=== PATIENT | female | born 1960 | race Two or more races ===

== ENCOUNTER 2018-11-26 12:43 | Inpatient (IN) | payer MEDICAID ==
[~2018-11-26] VITALS: Ht 157.5 cm; Wt 54.0 kg
[~2018-11-26 12:43] MED LIST: ACET-2178 PO; BENA20TA10 PO; GLUCO8 PO; IBUP-1636 PO; LEVO500T2 PO; SITA25TA3 PO
[2018-11-26] MEDS ORDERED: ONDANSETRON HCL 4MG/2ML INJ IV STA (19:55)
[2018-11-26] MEDS ORDERED: SODIUM CHLORIDE 0.9% 1,000 ML IV ONE (19:55)
[2018-11-26] MEDS ORDERED: FAMOTIDINE 20MG/2ML VIAL IV STA (19:55)
[2018-11-26] MEDS ORDERED: MORPHINE SULFATE 4 MG/ML CPJ (NOT FOR IM USE) IV STA (19:55)
[2018-11-26 20:53] LABS: HEMATOCRIT. 39.2 % (36.0-48.0); MEAN CORPUSCULAR HEMOGLOBIN 36.4 pg (28.0-32.0); MEAN CORPUSCULAR VOLUME 110.2 fL (81.0-99.0); MEAN PLATELET VOLUME 10.6 fl (7.4-10.4); PLATELET 104 x1000/uL (130-400); RED BLOOD CELL COUNT 3.56 mill/uL (4.2-5.4); RED CELL DISTRIBUTION WIDTH 14.2 % (11.6-14.6)
[2018-11-26 20:59] LABS: CHLORIDE 96 mEq/L (98-107)
[2018-11-26 21:00] LABS: INR 0.9
[2018-11-26 21:17] LABS: PROTHROMBIN TIME 8.9 sec (9.6-11.0)
[2018-11-26] MEDS ORDERED: VANCOMYCIN 1 G PREMIX 200 ML IV ONE (21:30)
[2018-11-26] MEDS ORDERED: PIPERACILLIN/TAZ 3.375G PREMIX 50 ML IV ONE (21:30)
[2018-11-26] MEDS ORDERED: SODIUM CHLORIDE 0.9% 1000ML BAG (SEPSIS BOLUS) IV ONE (21:30)
[2018-11-26 21:42] LABS: BG BASE EXCESS -11.3 mmol/L (-2.0-2.0); BG CARBOXYHEMOGLOBIN 0.3 % (0.5-1.5); BG DEOXYHEMOGLOBIN 6.2 % (0.0-5.0); BG FRACTION INSPIRED OXYGEN 21; BG HCO3 ACT 12.9 mmol/L (22.0-26.0); BG METHEMOGLOBIN 0.4 % (0.0-1.5); BG OXYGEN SATURATION 93.8 % (92.0-98.5); BG OXYHEMOGLOBIN 93.1 % (94.0-97.0); BG PCO2 25.6 mmHg (35.0-45.0); BG PH 7.321 (7.350-7.450); BG PO2 72.5 mmHg (75.0-100.0); BG SAMPLE SITE RIGHT BRACHIAL; BG TOTAL HEMOGLOBIN 14.2 g/dL (12.0-18.0); BG VENT MODE ROOM AIR
[2018-11-26 22:57] LABS: CLARITY URINE CLOUDY (CLEAR); COLOR URINE YELLOW (YELLOW); KETONES URINE 2+ (NEGATIVE); LEUKOCYTE ESTERASE URINE TRACE (NEGATIVE); NITRITE URINE NEGATIVE (NEGATIVE); OCCULT BLOOD URINE 3+ (NEGATIVE); PROTEIN URINE 2+ (NEGATIVE); SPECIFIC GRAVITY URINE 1.026 (1.005-1.030)
[2018-11-26 23:10] LABS: PLATELET ESTIMATE SLIGHTLY DECREASED
[2018-11-27] VITALS (25 sets, daily range): BP systolic 111–174; BP diastolic 53–126
[2018-11-27] MEDS ORDERED: DEXTROSE 50% WATER 50ML SYRINGE IV PRN (00:45)
[2018-11-27] MEDS: BLOOD SUGAR DIAGNOSTIC STRIP TEST SCH ×4 (01:30→16:58)
[2018-11-27] MEDS ORDERED: HYDRALAZINE 20MG/ML VIAL IV PRN (01:30)
[2018-11-27] MEDS ORDERED: INSULIN LISPRO 100 UNITS/ML SUBCUT SCH ×2 (01:30→08:20)
[2018-11-27] MEDS: SODIUM CHL 0.9% + KCL 20MEQ/L 1,000 ML IV SCH ×3 (02:03→20:29)
[2018-11-27] MEDS: ACETAMINOPHEN 325MG TABLET PO PRN ×4 (03:22→20:41)
[2018-11-27 05:30] LABS: HEMATOCRIT. 33.8 % (36.0-48.0); HEMOGLOBIN. 11.4 g/dL (12.0-16.0); MEAN CORPUSCULAR HEMOGLOBIN 36.3 pg (28.0-32.0); MEAN CORPUSCULAR VOLUME 107.2 fL (81.0-99.0); MEAN PLATELET VOLUME 10.9 fl (7.4-10.4); PLATELET 84 x1000/uL (130-400); RED BLOOD CELL COUNT 3.15 mill/uL (4.2-5.4); RED CELL DISTRIBUTION WIDTH 13.6 % (11.6-14.6)
[2018-11-27] MEDS: PIPERACILLIN/TAZ 2.25G PREMIX 50 ML IV SCH ×2 (05:52→13:26)
[2018-11-27] MEDS: INSULIN LISPRO 100 UNITS/ML SUBCUT SCH ×4 (05:53→20:50)
[2018-11-27] MEDS ORDERED: PIPERACILLIN/TAZ 3.375G PREMIX 50 ML IV SCH (06:00)
[2018-11-27] MEDS ORDERED: BLOOD SUGAR DIAGNOSTIC STRIP TEST SCH (06:00)
[2018-11-27] MEDS ORDERED: KCL 20MEQ/100ML PREMIX 100 ML IV NR (08:00)
[2018-11-27] MEDS ORDERED: ONDANSETRON HCL 4MG/2ML INJ IV PRN (09:30)
[2018-11-27] MEDS ORDERED: HYDROCODONE/ACETAMINOPHEN 5/325MG TABLET PO PRN (09:30)
[2018-11-27] MEDS ORDERED: CLONIDINE 0.1MG TABLET PO PRN (09:30)
[2018-11-27] MEDS ORDERED: DOCUSATE SODIUM 250MG CAPSULE PO PRN (09:45)
[2018-11-27] MEDS ORDERED: LACTULOSE 20G/30ML UDC PO PRN (09:45)
[2018-11-27] MEDS: VANCOMYCIN 750 MG PREMIX 150 ML IV SCH ×2 (10:59→20:28)
[2018-11-27] MEDS: INSULIN GLARGINE UD 100 UNITS/ML SYR SUBCUT SCH ×2 (11:04→20:51)
[2018-11-27] MEDS: AMLODIPINE 5MG TABLET PO SCH (11:44)
[2018-11-27 16:39] LABS: PLATELET ESTIMATE DECREASED
[2018-11-27] MEDS ORDERED: VANCOMYCIN 1500MG in DEXTROSE 5% WATER 250ML IV SCH (17:00)
[2018-11-27] MEDS: PIPERACILLIN/TAZ 3.375G PREMIX 50 ML IV SCH (20:28)
[2018-11-28] VITALS: BP 138/67
[2018-11-28 04:00] VITALS: BP 145/76
[2018-11-28] MEDS: BLOOD SUGAR DIAGNOSTIC STRIP TEST SCH ×4 (06:00→16:41)
[2018-11-28] MEDS: INSULIN LISPRO 100 UNITS/ML SUBCUT SCH ×3 (06:00→16:40)
[2018-11-28 06:04] LABS: HEMATOCRIT. 35.6 % (36.0-48.0); HEMOGLOBIN. 12.4 g/dL (12.0-16.0); MEAN CORPUSCULAR HEMOGLOBIN 37.2 pg (28.0-32.0); MEAN CORPUSCULAR VOLUME 106.6 fL (81.0-99.0); MEAN PLATELET VOLUME 11.8 fl (7.4-10.4); PLATELET 85 x1000/uL (130-400); RED BLOOD CELL COUNT 3.34 mill/uL (4.2-5.4); RED CELL DISTRIBUTION WIDTH 14.2 % (11.6-14.6)
[2018-11-28] MEDS: PIPERACILLIN/TAZ 3.375G PREMIX 50 ML IV SCH ×2 (06:12→09:20)
[2018-11-28 07:19] LABS: PLATELET ESTIMATE DECREASED
[2018-11-28 08:00] VITALS: BP 103/56
[2018-11-28] MEDS: AMLODIPINE 5MG TABLET PO SCH (09:00)
[2018-11-28] MEDS: SODIUM CHL 0.9% + KCL 20MEQ/L 1,000 ML IV SCH ×2 (09:20→17:23)
[2018-11-28] MEDS: INSULIN GLARGINE UD 100 UNITS/ML SYR SUBCUT SCH ×2 (09:43→21:06)
[2018-11-28] MEDS: ACETAMINOPHEN 325MG TABLET PO PRN (10:34)
[2018-11-28 12:00] VITALS: BP 109/59
[2018-11-28] MEDS ORDERED: VANCOMYCIN 750 MG PREMIX 150 ML IV SCH (12:00)
[2018-11-28] MEDS: CEFAZOLIN 1000MG PREMIX 50 ML IV SCH ×2 (14:38→20:56)
[2018-11-28 16:00] VITALS: BP 155/95
[2018-11-28 20:00] VITALS: BP 140/72
[2018-11-29] VITALS: BP 138/64
[2018-11-29] MEDS: BLOOD SUGAR DIAGNOSTIC STRIP TEST SCH ×4 (00:57→18:00)
[2018-11-29] MEDS: SODIUM CHL 0.9% + KCL 20MEQ/L 1,000 ML IV SCH ×2 (03:15→17:16)
[2018-11-29 04:00] VITALS: BP 144/72
[2018-11-29] MEDS: CEFAZOLIN 1000MG PREMIX 50 ML IV SCH ×3 (05:27→21:20)
[2018-11-29] MEDS: INSULIN LISPRO 100 UNITS/ML SUBCUT SCH ×4 (06:00→18:00)
[2018-11-29 06:04] LABS: BASOPHILS % 0.1 % (0.0-2.0); EOSINOPHILS % 0.2 % (0.0-5.0); HEMATOCRIT. 33.6 % (36.0-48.0); HEMOGLOBIN. 11.4 g/dL (12.0-16.0); LYMPHOCYTES % 12.3 % (20.0-50.0); MEAN CORPUSCULAR HEMOGLOBIN 35.9 pg (28.0-32.0); MEAN CORPUSCULAR VOLUME 105.5 fL (81.0-99.0); MEAN PLATELET VOLUME 10.8 fl (7.4-10.4); MONOCYTES % 8.8 % (2.0-8.0); NEUTROPHILS % 78.6 % (40.0-76.0); PLATELET 101 x1000/uL (130-400); RED BLOOD CELL COUNT 3.18 mill/uL (4.2-5.4); RED CELL DISTRIBUTION WIDTH 14.3 % (11.6-14.6)
[2018-11-29 08:00] VITALS: BP 125/67
[2018-11-29] MEDS: AMLODIPINE 5MG TABLET PO SCH (09:08)
[2018-11-29] MEDS: INSULIN GLARGINE UD 100 UNITS/ML SYR SUBCUT SCH (10:33)
[2018-11-29 12:00] VITALS: BP 131/71
[2018-11-29 16:00] VITALS: BP 146/81
[2018-11-29] MEDS ORDERED: POTASSIUM CHLORIDE 20MEQ TABLET SR PO NR (16:30)
[2018-11-29 20:00] VITALS: BP 120/68
[2018-11-30] VITALS: BP 118/67
[2018-11-30] MEDS: SODIUM CHL 0.9% + KCL 20MEQ/L 1,000 ML IV SCH ×2 (00:12→11:56)
[2018-11-30 04:00] VITALS: BP 121/75
[2018-11-30] MEDS: CEFAZOLIN 1000MG PREMIX 50 ML IV SCH ×2 (06:35→13:22)
[2018-11-30 06:37] LABS: HEMOGLOBIN. 10.8 g/dL (12.0-16.0); MEAN CORPUSCULAR VOLUME 106.9 fL (81.0-99.0); MEAN PLATELET VOLUME 10.2 fl (7.4-10.4); PLATELET 127 x1000/uL (130-400); RED CELL DISTRIBUTION WIDTH 14.5 % (11.6-14.6)
[2018-11-30 08:00] VITALS: BP 129/56
[2018-11-30 08:57] LABS: PLATELET ESTIMATE SLIGHTLY DECREASED
[2018-11-30] MEDS: AMLODIPINE 5MG TABLET PO SCH (09:00)
[2018-11-30 12:00] VITALS: BP 123/50
[2018-11-30] MEDS: INSULIN LISPRO 100 UNITS/ML SUBCUT SCH ×2 (12:00→18:00)
[2018-11-30 16:00] VITALS: BP 111/58
[2018-11-30 16:25] VITALS: BP 111/58
[2018-11-30] MEDS: BLOOD SUGAR DIAGNOSTIC STRIP TEST SCH ×2 (18:00)
== END 2018-11-30 19:08 | disposition home or self-care (01) | DRG 720 ==
LOC: ER 13:31 → CVICU 22:56 → EDBEDREQ 23:05 → EDBEDREQTM 23:05 → CANRESERV 23:34 → ENRESERV 23:34 → EDBEDREQSVC 23:42 → ENRESERV 23:49 → 5WST 11-27 16:00
PROVIDERS: ADMIT Internal Medicine; ATTEND Internal Medicine
DX: A41.51 Sepsis due to Escherichia coli [E. coli] (principal); J96.00 Acute respiratory failure, unspecified whether with hypoxia or hypercapnia; E43 Unspecified severe protein-calorie malnutrition; N10 Acute pyelonephritis; E87.1 Hypo-osmolality and hyponatremia; E87.6 Hypokalemia; I10 Essential (primary) hypertension; E11.649 Type 2 diabetes mellitus with hypoglycemia without coma; E78.5 Hyperlipidemia, unspecified; F17.200 Nicotine dependence, unspecified, uncomplicated; R65.20 Severe sepsis without septic shock; J98.11 Atelectasis; K59.00 Constipation, unspecified; N28.81 Hypertrophy of kidney; Z68.21 Body mass index [BMI] 21.0-21.9, adult; Z71.6 Tobacco abuse counseling; Z79.2 Long term (current) use of antibiotics; Z79.899 Other long term (current) drug therapy; Z79.1 Long term (current) use of non-steroidal anti-inflammatories (NSAID); Z90.49 Acquired absence of other specified parts of digestive tract; Z98.891 History of uterine scar from previous surgery
CPT/HCPCS: 36415; 36600; 71045; 74176; 80048; 80202; 82010; 82375; 82805; 82962; 83605; 84145; 87077; 87186; 93005; 93970; 96374; 99285; C1893; J0360; J0690; J1815; J2270; J2405; J2543; J3370; J3480; J3490; J7030; J7050; J7060